=== PATIENT | female | born 1990 | race Caucasian/White ===

== ENCOUNTER 2019-02-15 14:34 | Emergency (ER) | payer OTHER ==
[2019-02-15 14:58] VITALS: BMI 27.3
--- NOTE | 2019-02-15 16:01 | OBHP ---
Datetime: 02/15/2019 15:00 IP Adm Impression: Term, intrauterine ; Intact Membranes IP Admit Plan: Observation/Evaluation Admit Comment, IP Provider: 28yo IUP at 40w1d came for NST. She wentto see PMD earlier today, h ad 'low heart rate', and went home. She ate bfast 10:30am, not lunch. She was told to come for NST. No CTX; no VB; No SROM PNC: Dr Nicol Ness - appt today and nex appt tues PMH: denies/had e coli UTI in preg / took Ab PSH denies NKA POBGYN: g1 ; no std A: IUP at 40w decreased FM PLAN: NST reactive; BPP ordered; labor instructoins; pre-clampsia warning She has appt for OB visit next tues 41w 1d General - PN: Normal FHR - Baseline A Provider: 130 Comments, ACOG Physical Exam: In NAD decelined exam IP Hx Assessment: The History has been Reviewed and is Current EGA AdmitDate IP: 40.1 IP Chief Complaint: Decreased movement NICHD Variability Prov Fetus A: Moderate 6-25bpm NICHD Accel Fetus A IP Provider: 15X15 FHR Category Provider Fetus A: Category I
--- NOTE | 2019-02-15 16:58 | US ---
Date of service: 02/15/2019 PROCEDURE: OB Pelvic Ultrasound HISTORY: decreased movement - 40w COMPARISON: None available. FINDINGS: UTERUS: Single Live intrauterine fetus in cephalic presentation. BPD: 9.38 cm corresponding to 38 weeks and 1 day of gestational age. HC: 33.64 cm corresponding to 38 weeks and 4 days of gestational age. AC: 34.32 cm corresponding to 38 weeks and 2 days of gestational age. FL: 7.49 cm corresponding to 38 weeks and 2 days of gestational age. age (Ultrasound estimated): 38 weeks and 2 days Date of delivery (Ultrasound estimated) : 02/27/2019 Heart rate: 119 bpm. Soraida-gestational hemorrhage: None. Placenta is fundal and posterior. CERVIX: Long and closed. Cervical length measures 3.7 cm. No cervical abnormality seen. RIGHT OVARY: Not visualized. LEFT OVARY: Not visualized. FREE FLUID: None. OTHER FINDINGS: None. IMPRESSION: Single intrauterine fetus in cephalic presentation with mean gestational age of 38 weeks and 2 days. Placenta is fundal and posterior. Cervical length measures 3.7 cm. The estimated date of delivery by ultrasound is 02/27/2019. Please note this is a limited OB ultrasound performed on an emergent basis..
--- NOTE | 2019-02-16 07:20 | OBDCSUM ---
Datetime: 02/15/2019 16:43 Discharge Diagnosis Prov Other: decreased FM - NST reative
[2019-02-16 15:34] VITALS: BP 117/76; PULSE 78; O2SAT 100
== END 2019-02-15 16:43 | disposition home or self-care (01) ==
LOC: H.EROB2 14:34
DX: O76 Abnormality in fetal heart rate and rhythm complicating labor and delivery (principal); Z3A.40 40 weeks gestation of pregnancy; O48.0 Post-term pregnancy; O36.8131 Decreased fetal movements, third trimester, fetus 1

== ENCOUNTER 2019-02-22 19:26 | Inpatient (IN) | payer OTHER ==
[2019-02-22] MEDS ORDERED: Lactated Ringer's 1,000 ML IV SCH (20:45)
[2019-02-22] MEDS: Lactated Ringer's 1,000 ML IV ONE (21:00)
[2019-02-22 21:33] VITALS: O2SAT 100
[2019-02-22 21:54] LABS: BASO # 0.1 K/uL (0.0-0.2); BASO % 0.5 % (0.0-2.0); EOS # 0.3 K/uL (0.0-0.7); EOS % 2.6 % (0.0-4.0); HEMOGLOBIN 12.8 g/dL (12.0-16.0); LYMPH # 1.9 K/uL (1.0-4.3); LYMPH % 17.7 % (20.0-40.0); MEAN CELL VOLUME 93.6 fl (81.0-99.0); MEAN CORPUSCULAR HEMOGLOBIN 33.4 pg (27.0-31.0); MEAN CORPUSCULAR HGB CONC 35.7 g/dL (33.0-37.0); MEAN PLATELET VOLUME 8.3 fl (7.2-11.7); MONO # 0.8 K/uL (0.0-0.8); MONO % 7.3 % (0.0-10.0); NEUT # 7.6 K/uL (1.8-7.0); NEUT % 71.9 % (50.0-75.0); NRBC % 0.1 % (0.0-0.0); RBC 3.83 Mil/uL (3.80-5.20); RED CELL DISTRIBUTION WIDTH 12.7 % (11.5-14.5); WHITE BLOOD COUNT 10.6 K/uL (4.8-10.8)
[2019-02-23] MEDS: Lactated Ringer's 1,000 ML IV ONE (01:09)
[2019-02-23] MEDS ORDERED: Lactated Ringer's 1,000 ML IV SCH (02:45)
[2019-02-23] MEDS: Lactated Ringer's 1,000 ML IV SCH ×3 (03:45→19:45)
--- NOTE | 2019-02-23 07:53 | OBADHP ---
Datetime: 02/22/2019 21:55 FHR - Baseline A Provider: 150 Gestation - Est Wks by US: 41.1 Vital Signs Provider: Reviewed; Within Normal Limits NICHD Variability Prov Fetus A: Moderate 6-25bpm NICHD Accel Fetus A IP Provider: 15X15 NICHD Decel Fetus A IP Provider: None Dilatation, Provider: FT Effacement, Provider: long Datetime: 02/22/2019 20:00 Admit Comment, IP Provider: 28 y/o female at 41.1 wks GA presents to L_D for scheduled IOL. She denies vaginal bleeding, fluid loss. Endorses movement. Denies headache/n/v/chest pain/urinary sx. OB: Dr. Ness Pmhx: denies HomeRx: vitamins Allergies: NKDA Socialhx: denies toxic habits Surghx: denies Famhx: denies ROS: all systems reviewed and negative except per HPI Physical exam: Gen: sitting up comfortably in bed, NAD Heart: s1 s2 present, RRR Lungs: normal respiratory effort, clear to auscultation bilaterally Abd: gravid. normal BS. Soft, non-tender Extremities: no swelling/erythema/tenderness Psych: normal affect. good eye contact. cooperative Assessment and Plan 28 y/o female at 41.1 wks GA presents to L_D for scheduled IOL GBS neg, HIV neg, RPR neg, HsBag neg, rubella immune, B+ ab- Admit to L_D CBC, type and screen Can have epidural; anesthesiology consulted Cervidil 10mg Vag x1 Case discussed w/ attending, Dr. Damaris Crawford OB Hospitalist on-call. With PGY, I saw and examined this patient. Agree with note. I spoke at leght with patient about condition, IOL, medications, risks/complications, pain management, delivey a nd . Her questions answered. MAHNDO Pelvic Type - PN: Not Done Extremities - PN: Normal Abdomen - PN: Normal Back - PN: Not Done Breast - PN: Not Done Lungs - PN: Normal Heart - PN: Normal Thyroid - PN: Not Done Neurologic - PN: Not Done HEENT - PN: Not Done General - PN: Normal IP Hx Assessment: The History has been Reviewed and is Current IP Chief Complaint: Scheduled induction of labor Genitourinary Exam: Not Done DTRs - PN: Not Done EGA AdmitDate IP: 41.1 IP Adm Impression: Postterm, intrauterine IP Admit Plan: Admit to unit; Initiate labor induction protocol Datetime: 02/15/2019 15:00 Comments, ACOG Physical Exam: In NAD decelined exam FHR Category Provider Fetus A: Category I
--- NOTE | 2019-02-23 08:01 | OBPN ---
Datetime: 02/22/2019 21:55 IP Progress Impression: Normal progression of labor IP Progress Plan: Cervical Ripening FHR - Baseline A Provider: 150 Gestation - Est Wks by US: 41.1 IP Progress Note Comment: S: Pating sitting up in bed comfortably. No complaints at this time. O: SVE by Dr. Ocampo: cervix is FT/long A 28 y/o female at 41.1 wks GA IUP P: cervidil 10mg Vagx1 Case discussed w/ attending, Dr. Ocampo [facility] note : agrre with note MAHNDO Vital Signs Provider: Reviewed; Within Normal Limits NICHD Accel Fetus A IP Provider: 15X15 NICHD Variability Prov Fetus A: Moderate 6-25bpm Dilatation, Provider: FT Effacement, Provider: long NICHD Decel Fetus A IP Provider: None Datetime: 02/15/2019 15:00 FHR Category Provider Fetus A: Category I
[2019-02-23] MEDS ORDERED: Oxytocin 30 UNIT in NS 500 ml 30 UNITS/500 ML BAG IV ONE (10:42)
[2019-02-23] MEDS ORDERED: Nalbuphine HCL 10 mg/ml Ampule IVP PRN (23:28)
[2019-02-24] MEDS ORDERED: Fentanyl/Bupivacaine HCl 250 ML EPI ONE (01:31)
[2019-02-24] MEDS: Lactated Ringer's 1,000 ML IV SCH (03:45)
[2019-02-24] MEDS ORDERED: Lidocaine 1% Inj (20ml) ONE (08:53)
[2019-02-24] MEDS ORDERED: Oxytocin 30 UNIT in NS 500 ml 30 UNITS/500 ML BAG IV ONE (09:25)
[2019-02-24] MEDS ORDERED: Oxycodone/Acetaminophen 5/325 mg Tab PO PRN ×6 (13:36→14:39)
[2019-02-24] MEDS ORDERED: Benzocaine/Menthol SPRAY TOP PRN ×3 (13:36→14:39)
[2019-02-24] MEDS ORDERED: Nalbuphine HCL 10 mg/ml Ampule IVP PRN (14:05)
[2019-02-25 06:12] LABS: BASO # 0.1 K/uL (0.0-0.2); BASO % 0.4 % (0.0-2.0); EOS # 0.2 K/uL (0.0-0.7); EOS % 1.4 % (0.0-4.0); HEMOGLOBIN 12.3 g/dL (12.0-16.0); LYMPH # 1.8 K/uL (1.0-4.3); LYMPH % 14.6 % (20.0-40.0); MEAN CELL VOLUME 93.7 fl (81.0-99.0); MEAN CORPUSCULAR HEMOGLOBIN 33.4 pg (27.0-31.0); MEAN CORPUSCULAR HGB CONC 35.7 g/dL (33.0-37.0); MEAN PLATELET VOLUME 8.3 fl (7.2-11.7); MONO # 0.9 K/uL (0.0-0.8); MONO % 7.4 % (0.0-10.0); NEUT # 9.3 K/uL (1.8-7.0); NEUT % 76.2 % (50.0-75.0); NRBC % 0.2 % (0.0-0.0); RBC 3.69 Mil/uL (3.80-5.20); RED CELL DISTRIBUTION WIDTH 12.6 % (11.5-14.5); WHITE BLOOD COUNT 12.2 K/uL (4.8-10.8)
--- NOTE | 2019-02-25 08:54 | OBDS ---
DELIVERY PERSONNEL Delivery Doctor: Bradley Romero MD Scrub Nurse: Isis Saldana Nanotechnology Technician: Jerald Stearns RN; Mj Porter RN Anesthesiologist: Dr. Page MATERNAL INFORMATION Delivery Anesthesia: Epidural Medications in Delivery: Pitocin 30mu in 500ml NS Estimated Blood Loss (ml): 200 Placenta Cultured: No Maternal Complications: None Provider Comments: Normal spontaneous vaginal delivery. Patient delivered viable infant male with Apgars of 9 and 9 at 1 and 5 minutes respectively. Infa nt delivered via ANNE-MARIE position. Placenta delivered spontaneously. No lacerations, perineum intact. Uterus firm and appropriate hemostatic following delivery. Patient tolerated delivery well. No comp lications. Estimated blood loss 300 cc. LABOR SUMMARY EDC: 02/14/2019 00:00 No. Babies in Womb: 1 Attempted: No Labor Anesthesia: Epidural LABOR INFORMATION Complete Dilatation: 02/24/2019 08:46 Cervical Ripening Agents: Cervidil (Annotations: removed By Dr Kolton Dong in room ) Oxytocin: Augmentation Group B Beta Strep: Negative Steroids Given: None Reason Steroids Not Administered: Not Applicable MEMBRANES Membranes Rupture Method: Spontaneous Rupture of Membranes: 02/24/2019 01:05 Length of Rupture (hrs): 9.33 Amniotic Fluid Color: Light Meconium Amniotic Fluid Amount: Small Amniotic Fluid Odor: Normal STAGES OF LABOR Stage 2 hrs: 1 Stage 2 min: 39 Stage 3 hrs: 0 Stage 3 min: 8 VAGINAL DELIVERY Episiotomy: None Laceration Extension: N/A Laceration Type: None Laceration Repair: Not Applicable Initial Vag Sponge Count: 5 Final Vag Sponge Count: 5 Initial Vag Sharps Count: 0 Final Vag Sharps Count: 0 Sponge Count Correct: Yes Sharps Count Correct: N/A BABY A INFORMATION Delivery Date/Time: 02/24/2019 10:25 Method of Delivery: Vaginal Born in Route : No : N/A Forceps: N/A Vacuum Extraction: N/A Shoulder Dystocia : Yes SHOULDER DYSTOCIA BABY A Delivery Date/Time: 02/24/2019 10:25 PRESENTATION/POSITION BABY A Presentation: Cephalic PLACENTA INFORMATION BABY A Placenta Delivery Time : 02/24/2019 10:33 Placenta Method of Delivery: Spontaneous Placenta Status: Delivered SCORES BABY A Heart Rate 1 min: >100 bpm Resp Effort 1 min: Good Cry Reflex Irritability 1 min: Cough or Sneeze or Pulls Away Muscle Tone 1 min: Active Motion Color 1 min: Body [place], Extremities Blue Resuscitation Effort 1 min: Tactile Stimulation SCORE 1 MIN: 9 Heart Rate 5 min: >100 bpm Resp Effort 5 min: Good Cry Reflex Irritability 5 min: Cough or Sneeze or Pulls Away Muscle Tone 5 min: Active Motion Color 5 min: Body [place], Extremities Blue Resuscitation Effort 5 min: N/A SCORE 5 MIN: 9 INFORMATION BABY A Gestational Age at Delivery: 41.3 Gestational Status: Term Outcome : Liveborn Infant Condition : Stable Sex: Male IDENTIFICATION/MEDS BABY A ID Band Number: [id number] ID Band Location: Left Leg; Left Arm WEIGHT/LENGTH BABY A Infant Birthweight (gms): 3990 Weight (lb): 8 Weight (oz): 13 CORD INFORMATION BABY A No. Cord Vessels: 3 Nuchal Cord : Around Neck x1, Loose Infant Cord pH Baby Venous: 7.22 Cord Blood Taken: Yes Infant Suction: Mouth; Nose
--- NOTE | 2019-02-25 08:59 | OBDS ---
DELIVERY PERSONNEL Delivery Doctor: Bradley Romero MD Scrub Nurse: Isis Saldana Lasting Room Machine Operator: Jerald Stearns RN; Mj Porter RN Anesthesiologist: Dr. Page MATERNAL INFORMATION Delivery Anesthesia: Epidural Medications in Delivery: Pitocin 30mu in 500ml NS Estimated Blood Loss (ml): 200 Placenta Cultured: No Maternal Complications: None Provider Comments: Normal spontaneous vaginal delivery. Patient delivered viable infant male with Apgars of 9 and 9 at 1 and 5 minutes respectively. Infa nt delivered via ANNE-MARIE position. Placenta delivered spontaneously. No lacerations, perineum intact. Uterus firm and appropriate hemostatic following delivery. Patient tolerated delivery well. No comp lications. Estimated blood loss 300 cc. LABOR SUMMARY EDC: 02/14/2019 00:00 No. Babies in Womb: 1 Attempted: No Labor Anesthesia: Epidural LABOR INFORMATION Complete Dilatation: 02/24/2019 08:46 Cervical Ripening Agents: Cervidil (Annotations: removed By Dr Kolton Dong in room ) Cervical Ripening Agents: Cervidil Oxytocin: Augmentation Group B Beta Strep: Negative Steroids Given: None Reason Steroids Not Administered: Not Applicable MEMBRANES Membranes Rupture Method: Spontaneous Membranes Rupture Method: pt denies Rupture of Membranes: 02/24/2019 01:05 Length of Rupture (hrs): 9.33 Amniotic Fluid Color: Light Meconium Amniotic Fluid Amount: Small Amniotic Fluid Odor: Normal STAGES OF LABOR Stage 2 hrs: 1 Stage 2 min: 39 Stage 3 hrs: 0 Stage 3 min: 8 VAGINAL DELIVERY Episiotomy: None Laceration Extension: N/A Laceration Type: None Laceration Repair: Not Applicable Initial Vag Sponge Count: 5 Final Vag Sponge Count: 5 Initial Vag Sharps Count: 0 Final Vag Sharps Count: 0 Sponge Count Correct: Yes Sharps Count Correct: N/A BABY A INFORMATION Delivery Date/Time: 02/24/2019 10:25 Method of Delivery: Vaginal Method of Delivery: Vaginal Born in Route : No : N/A Forceps: N/A Vacuum Extraction: N/A Shoulder Dystocia : Yes SHOULDER DYSTOCIA BABY A Infant Delivery Date/Time: 02/24/2019 10:25 PRESENTATION/POSITION BABY A Presentation: Cephalic PLACENTA INFORMATION BABY A Placenta Delivery Time : 02/24/2019 10:33 Placenta Method of Delivery: Spontaneous Placenta Method of Delivery: Spontaneous Placenta Status: Delivered SCORES BABY A Heart Rate 1 min: >100 bpm Resp Effort 1 min: Good Cry Reflex Irritability 1 min: Cough or Sneeze or Pulls Away Muscle Tone 1 min: Active Motion Color 1 min: Body [place], Extremities Blue Resuscitation Effort 1 min: Tactile Stimulation SCORE 1 MIN: 9 Heart Rate 5 min: >100 bpm Resp Effort 5 min: Good Cry Reflex Irritability 5 min: Cough or Sneeze or Pulls Away Muscle Tone 5 min: Active Motion Color 5 min: Body [place], Extremities Blue Resuscitation Effort 5 min: N/A SCORE 5 MIN: 9 INFANT INFORMATION BABY A Gestational Age at Delivery: 41.3 Gestational Status: Term Outcome : Liveborn Infant Condition : Stable Sex: Male Infant Sex: Male IDENTIFICATION/MEDS BABY A ID Band Number: [id number] ID Band Location: Left Leg; Left Arm WEIGHT/LENGTH BABY A Birthweight (gms): 3990 Infant Weight (lb): 8 Weight (oz): 13 CORD INFORMATION BABY A No. Cord Vessels: 3 Nuchal Cord : Around Neck x1, Loose Infant Cord pH Baby Venous: 7.22 Cord Blood Taken: Yes Infant Suction: Mouth; Nose
--- NOTE | 2019-02-25 09:58 | OBPPN ---
Datetime: 02/25/2019 09:50 PP Pain Prov: Within normal limits PP Nausea Prov: Denies PP Flatus Prov: Yes PP Breasts Prov: Normal PP Heart Prov: Normal PP Lungs Prov: Normal PP Abdomen/Uterus Prov: Normal PP Lochia Prov: Normal PP Vulva/Perineum Prov: Normal PP CVA Tenderness Prov: Normal PP Extremities Prov: Normal PP Comments Phys Exam Prov: Fundus firm under umbilicus PP Impression Prov: Normal progression PP Plan Prov: Continue present management PP Progress Note Prov: Patient denies CP, no SOB, no N/V, tolerating PO diet, ambulating voiding wel l, mild lochia, abdominal pain tolerable with meds A/P 1. Continue orders 2. Encourange ambulation/ 3. Motrin prn pain IP PP Procedures: None Vital Signs Provider PP: Reviewed; Within Normal Limits
[2019-02-25 17:30] LABS: SQUAMOUS EPITHIAL 1 /hpf (0-5); URINE BILIRUBIN NEGATIVE (NEGATIVE); URINE CLARITY CLOUDY (Clear); URINE COLOR YELLOW (YELLOW); URINE GLUCOSE (UA) NEG (NEGATIVE); URINE LEUKOCYTE ESTERASE NEG Leu/uL (Negative); URINE PROTEIN 30 mg/dL (NEGATIVE); URINE UROBILINOGEN 0.2-1.0 mg/dL (0.2-1.0)
[2019-02-25 17:31] LABS: URINE BLOOD MODERATE (NEGATIVE)
--- NOTE | 2019-02-26 09:38 | OBPPN ---
Datetime: 02/26/2019 09:32 PP Pain Prov: Within normal limits PP Nausea Prov: Denies PP Flatus Prov: Yes PP Breasts Prov: Normal PP Heart Prov: Normal PP Lungs Prov: Normal PP Abdomen/Uterus Prov: Normal PP Lochia Prov: Normal PP Vulva/Perineum Prov: Normal PP CVA Tenderness Prov: Normal PP Extremities Prov: Normal PP Comments Phys Exam Prov: Fundus firm under umbilicus PP Impression Prov: Normal progression PP Plan Prov: Continue present management PP Progress Note Prov: patient denies CP, no SOB, no N/V, tolerating PO diet, ambulating/voiding wel l, mild lochia, abdominal pain tolerable with meds A/P PPD #2 1. discharge pt home 2. discharge instructions reviewed IP PP Procedures: None Vital Signs Provider PP: Reviewed; Within Normal Limits
--- NOTE | 2019-02-26 09:38 | OBDCSUM ---
Datetime: 02/26/2019 09:33 Discharged to, Provider: Home Follow up at, Provider: OB Disch Instr Activity: Normal activity Disch Instr Diet: Regular Discharge Instructions, Provider: Routine instructions given Discharge Diagnosis, Provider: Term Delivered Discharge Time: 02/26/2019 09:33 Follow up in weeks, Provider: 6 wks Disch Referrals: None Contraception discussed, Prov: Yes
[2019-02-26 18:19] VITALS: BP 132/82; PULSE 61; RESP 20; TEMP 98.6
== END 2019-02-26 11:25 | disposition home or self-care (01) | DRG 807 ==
LOC: H.L&D 20:38 → H.OB/GYN 02-24 13:02
PROVIDERS: ADMIT Obstetrics & Gynecology; ATTEND Obstetrics & Gynecology
PROC: 4A1HXCZ Monitoring of Products of Conception, Cardiac Rate, External Approach (ICD-10-PCS; 2019-02-22)
PROC: 10E0XZZ Delivery of Products of Conception, External Approach (ICD-10-PCS; principal; 2019-02-25)
DX: O48.0 Post-term pregnancy (principal); Z37.0 Single live birth; Z3A.41 41 weeks gestation of pregnancy; O66.0 Obstructed labor due to shoulder dystocia; O69.81X0 Labor and delivery complicated by cord around neck, without compression, not applicable or unspecified